=== PATIENT | female | born 1965 | race Caucasian/White ===

== ENCOUNTER 2016-10-05 10:21 | Emergency (ER) | payer MEDICAID ==
[~2016-10-05] VITALS: Ht 152.4 cm; Wt 59.0 kg
[2016-10-05 10:28] VITALS: BP 149/82
[2016-10-05] MEDS ORDERED: NACL 0.9% 1,000 ML IV SCH (12:33)
[2016-10-05] MEDS ORDERED: ONDANSETRON 4 MG/2 ML VIAL IVP ONE (12:35)
--- NOTE | 2016-10-05 12:59 | NUR ---
51/F presents to ED for evaluation of hematuria x3 days. Pt denies vaginal bleeding. Patient also c/o weaknes, N/V, and lower abdominal pain. Skin warm and dry, normal for ethnicity. Pt c/o lower abdominal pain 03/17. Patient is AOX4, danish speaking with clear speech. VSS. Patient is calm and relaxed, no visible signs of distress noted.
--- NOTE | 2016-10-05 14:27 | NUR ---
Patient appears to be resting comfortably in bed. Vital Signs within normal limits. Respirations even and unlabored.
--- NOTE | 2016-10-05 15:04 | NUR ---
IV removed, catheter intact and site benign. Applied folded 4x4 gauze and tape to stop bleeding.
[2016-10-05 15:09] VITALS: BP 130/60
--- NOTE | 2016-10-05 15:10 | NUR ---
Patient discharged with v/s stable. Written and verbal after care instructions given and explained. Patient alert, oriented and verbalized understanding of instructions. Ambulatory with steady gait. All questions addressed prior to discharge. ID band removed. Patient advised to follow up with PMD. Rx of PYRIDIUM, TYLENOL, AND DOXYCYCLINE given. Patient educated on indication of medication including possible reaction and side effects. Opportunity to ask questions provided and answered.
--- NOTE | 2016-10-05 15:11 | NUR ---
Chart checked and completed. The patient's care was reviewed and supervised by River Sewell RN.
== END 2016-10-05 15:04 | disposition home or self-care (01) ==
LOC: MED 10:21
DX: N30.91 Cystitis, unspecified with hematuria (principal); R03.0 Elevated blood-pressure reading, without diagnosis of hypertension
CPT/HCPCS: 36415; 80053; 81001; 81025; 82150; 83690; 85025; 87077; 87086; 87186; 96361; 96374; 99284; J2405; J7030